=== PATIENT | female | born 1950 | race Caucasian/White ===

== ENCOUNTER → 2020-09-29 | Outpatient (CLI) | payer OTHER, MEDICARE ==
[~2020-09-29] VITALS: Ht 162.6 cm; Wt 53.1 kg
[~2020-09-29] MED LIST: ALLEGRA ALLERGY60 MG PO; COREG25 M1 PO; ELIQUIS5 MG PO; HYDROCHLOROTH12.5 M1 PO; NORVASC5 MG PO; OMEGA-3 FISH1200 MG PO; PRAVASTATIN SOD40 MG PO
--- NOTE | 2020-10-01 08:28 | P ---
[facility] [place] [address] PROCEDURE REPORT Name: MICHELLE CASTILLO Room #: REG [facility].#: [id number] Admission: 09/29/20 Attend Phys: Braden Frost Discharge: Date of : 48 Report #: [id number] THIS REPORT FOR: cc: CHAPINCITO GANT MD Physician not on staff Braden Chavez MD ~ DOC #: [id number] cc: Chapincito Gant MD, MD Braden Hollins MD DATE OF SERVICE: 09/29/2020 PROCEDURE PERFORMED: Colonoscopy. HISTORY OF PRESENT ILLNESS: The patient is a 70-year-old female reports for screening colonoscopy. No family history of colon cancer. She does report some mild abdominal bloating at times. Last colonoscopy was approximately 10 years ago. DESCRIPTION OF PROCEDURE: The risks and benefits of the procedure were explained to the patient, those risks including but not limited to bleeding, perforation and the risk of sedation. She understood these risks and gave informed consent. Sedation was given using propofol per anesthesia. Next, a digital rectal exam was initially performed, which was normal. Next, using a standard Olympus colonoscope, the scope was placed in the patient's anus and advanced under direct vision to the cecum. The overall prep was excellent. The cecum and ileocecal valve were normal in appearance. Ascending, transverse, descending colon were normal. Multiple small diverticula were noted in the sigmoid colon. No evidence of inflammation, otherwise normal. The rectal mucosa was normal. On retroflexion, small nonbleeding internal hemorrhoids were noted. The scope was then withdrawn and the procedure terminated. The patient tolerated the procedure well. IMPRESSION: 1. Sigmoid diverticulosis. 2. Small internal hemorrhoids. 3. Otherwise, normal colonoscopy. RECOMMENDATIONS: 1. Repeat colonoscopy in 10 years. 2. The patient with abdominal bloating. Upper endoscopy today was normal. If biopsies are negative for H. pylori and celiac sprue, we would recommend a trial of simethicone and/or probiotics. She also has documented several years ago, mildly delayed gastric emptying study, may consider repeat study in the near future or promotility agent if no improvement. [address] [address] PROCEDURE REPORT Name: MICHELLE CASTILLO Room #: REG Demond Ferguson#: [id number] Admission: 09/29/20 Attend Phys: Braden Frost Discharge: Date of : 48 Report #: [id number] Thank you for allowing me to participate in her care. Braden Chavez MD CCM/NOO <ELECTRONICALLY SIGNED> By: Braden Chavez MD 10/01/20 0828 0842 191 Braden Chavez, /amarilis
--- NOTE | 2020-10-01 08:28 | P ---
[facility] [place] [address] PROCEDURE REPORT Name: MICHELLE CASTILLO Room #: REG [facility].#: [id number] Admission: 09/29/20 Attend Phys: Braden Frost Discharge: Date of : 48 Report #: [id number] THIS REPORT FOR: cc: CHAPINCITO ALEXANDER MD Physician not on staff Braden Chavez MD ~ DOC #: [id number] cc: Little Gill MD, MD Braden Rios MD DATE OF SERVICE: 09/29/2020 PROCEDURE PERFORMED: Upper endoscopy with biopsies. HISTORY OF PRESENT ILLNESS: The patient is a 70-year-old female who reports abdominal bloating, typically worse after eating. She underwent an upper endoscopy by my partner in the past years ago, also a gastric emptying study showing mild delay at that time. She denies any heartburn or dysphagia. Plan is for EGD, colonoscopy today. DESCRIPTION OF PROCEDURE: The risks and benefits of the procedure were explained to the patient, those risks including but not limited to bleeding, perforation and the risk of sedation. She understood these risks and gave informed consent. Sedation was given using propofol per Anesthesia. Next, using a standard Olympus upper endoscope, the scope was placed in the patient's mouth and advanced under direct vision through the esophagus, stomach and into the second portion of the duodenum. The esophagus was normal throughout. The GE junction was normal. Upon entering the stomach, a small hiatal hernia was noted. Overall, the gastric mucosa was normal. Biopsies were obtained to rule out H. pylori. The pylorus was normal and patent. The duodenal bulb, first and second portion were all normal. Biopsies were obtained to rule out the possibility of celiac sprue. Scope was then withdrawn and the procedure terminated. The patient tolerated the procedure well. IMPRESSION: Normal upper endoscopy. RECOMMENDATIONS: 1. Await biopsy results. 2. We will proceed with colonoscopy next today. Thank you for allowing me to participate in her care. Braden Chavez MD CCM/JAX [address] [address] PROCEDURE REPORT Name: MICHELLE CASTILLO [id number] Admission: 09/29/20 Attend Phys: Braden Frost Discharge: Date of : 48 Report #: [id number] <ELECTRONICALLY SIGNED> By: Braden Chavez MD 10/01/20 0828 0815 21 Braden Chavez MD /nt
--- NOTE | 2020-10-04 18:06 | PATH ---
[facility] [address] [place] [address] PATHOLOGY RPT PROCEDURE Name: FOUZIA CASTILLO Room #: REG [facility]R.#: [id number] Admission: 09/29/20 Date of : 48 Discharge: Report #: [id number] Path Case #: [id number] [facility] Accession Number: [id number] . 01 Material submitted: . PART A: duodenum - DUODENUM BIOPSY R/O SPRUE PART B: gastrointestinal site - GASTRIC BIOPSY R/O H. PYLORI . 01 Clinical history: . COLONOSCOPY SCREENING COLON CANCER . 02 Diagnosis: A. Small bowel mucosa, duodenum, endoscopic biopsy: - No diagnostic abnormalities. - Negative for villous blunting or increase in intraepithelial lymphocytes. . B. Gastric mucosa, gastric rule out H. pylori, endoscopic biopsy: - Mild chronic inflammation. - Negative for intestinal metaplasia or atrophy. - Negative for Helicobacter pylori (properly-controlled immunohistochemical stain performed). . (IUV:mml; 10/04/2020) QLM 10/04/2020 1222 Local . 02 Electronically signed: . Estefania Moulton MD, Pathologist NPI- [id number] . 01 Gross description: . A. The specimen is received in formalin, labeled "Fouzia Castillo, duodenal BX". Received are 4 segments of pale espitia tissue ranging in size from 0.3 to 0.5 cm in maximum dimensions. The specimen is submitted entirely in cassette A1. . B. The specimen is received in formalin, labeled "Fouzia Castillo, gastric BX". Received are 2 segments of pale espitia tissue ranging in size from 0.3 to 0.5 cm in maximum dimensions. The specimen is submitted entirely in cassette B1.([facility]; 10/01/2020) [facility] 10/04/2020 1220 Local . 02 Pathologist provided ICD-10: K29.50 . 02 CPT . [address] [address] PATHOLOGY RPT PROCEDURE Name: FOUZIA CASTILLO [id number] Admission: 09/29/20 Date of : 48 Discharge: Report #: [id number] Path Case #: [id number] Specimen Comment: A courtesy copy of this report has been sent to [phone], [phone]- Specimen Comment: [id number] Specimen Comment: Report sent to / DR ALEXANDER Performed at: [address], [place], [place] [id number] MD Jose Francisco Sun MD Phone: [phone] Performed at: [address] [id number] MD Estefania Moulton MD Phone: [phone]
== END | disposition home or self-care (01) ==
LOC: GI 07:28
PROVIDERS: ATTEND Specialist
DX: R14.0 Abdominal distension (gaseous) (principal); K57.30 Diverticulosis of large intestine without perforation or abscess without bleeding; K64.8 Other hemorrhoids; K29.50 Unspecified chronic gastritis without bleeding; I10 Essential (primary) hypertension; I48.91 Unspecified atrial fibrillation; Z98.890 Other specified postprocedural states; Z79.899 Other long term (current) drug therapy; Z85.828 Personal history of other malignant neoplasm of skin; Z79.01 Long term (current) use of anticoagulants
CPT/HCPCS: 62110; 62900